=== PATIENT | female | born 1960 | race Caucasian/White ===

== ENCOUNTER 2016-10-23 08:00 | Outpatient (CLI) | payer MEDICAID | END 2016-10-23 08:01 | disposition home or self-care (01) | DX: R30.0 Dysuria (principal); R53.83 Other fatigue ==

== ENCOUNTER 2016-10-24 11:03 | Outpatient (CLI) | payer MEDICAID | END 2016-10-24 11:04 | disposition home or self-care (01) | DX: R53.83 Other fatigue (principal); R30.0 Dysuria ==

== ENCOUNTER 2016-11-07 13:15 | Outpatient (CLI) | payer MEDICAID | END 2016-11-07 13:16 | disposition home or self-care (01) | DX: R31.9 Hematuria, unspecified (principal) ==

== ENCOUNTER 2016-11-21 11:18 | Outpatient (CLI) | payer MEDICAID ==
[2016-11-21] MEDS ORDERED: IOPAMIDOL-300 100 ML VIAL IVP ONE (11:58)
== END 2016-11-21 11:19 | disposition home or self-care (01) ==
DX: K76.89 Other specified diseases of liver (principal); Q61.01 Congenital single renal cyst
CPT/HCPCS: 74178; Q9967

== ENCOUNTER 2017-06-09 18:10 | Emergency (ER) | payer MEDICAID ==
[2017-06-09 19:00] LABS: BILIRUBIN,URINE NEGATIVE (NEGATIVE)
[2017-06-09 19:02] LABS: UA w/ MICROSCOPIC CHARGE YES
[2017-06-09 19:11] LABS: BASOPHILS % (AUTO) 0.7 %; EOSINOPHILS # (AUTO) 0.1 10^3/uL (0.0-0.7); EOSINOPHILS % (AUTO) 1.3 %; HCT - HEMATOCRIT 41.4 % (37.0-47.0); HGB - HEMOGLOBIN 13.6 g/dL (12.0-16.0); LYMPHOCYTES # (AUTO) 2.1 10^3/uL (1.5-3.5); LYMPHOCYTES % (AUTO) 48.9 %; MEAN CORPUSCULAR HEMOGLOBIN 27.3 pg (27.0-31.0); MEAN CORPUSCULAR HGB CONC 32.9 g/dL (32.0-36.0); MEAN CORPUSCULAR VOLUME 82.9 fL (81.0-99.0); MEAN PLATELET VOLUME 7.7 fL (7.9-10.8); MONOCYTES # (AUTO) 0.3 10^3/uL (0.0-1.0); MONOCYTES % (AUTO) 7.8 %; NEUTROPHILS # (AUTO) 1.7 10^3/uL (1.5-6.6); NEUTROPHILS % (AUTO) 41.3 %; NUCLEATED RED BLOOD CELLS AUTO 0.1 /100WBC; RED BLOOD COUNT 4.99 10^6/uL (4.20-5.40); RED CELL DISTRIBUTION WIDTH 13.2 % (12.0-15.0); UNCORRECTED WHITE BLOOD COUNT 4.2 x10^3/uL; WHITE BLOOD COUNT 4.2 x10^3/uL (4.8-10.8)
[2017-06-09 19:18] LABS: UR CULTURE IF IND NOT INDICATED; WBC,URINE 0-3 /HPF (0-5)
[2017-06-09 19:23] LABS: ALBUMIN/GLOBULIN RATIO 1.8 (1.0-2.2); BILIRUBIN,TOTAL 0.6 mg/dL (0.2-1.0); CALCIUM 9.3 mg/dL (8.5-10.3); CREATININE 0.5 mg/dL (0.4-1.0); POTASSIUM 3.4 mmol/L (3.5-5.0); TOTAL PROTEIN 6.9 g/dL (6.7-8.2)
[2017-06-09] MEDS ORDERED: ACETAMINOPHEN 325 MG TABLET PO STA (19:23)
--- NOTE | 2017-06-09 19:24 | ED Physician Documentation ---
History of Present Illness - Stated complaint Stated Complaint: CASE, LOW BACK PX - Chief complaint Chief Complaint: General - History obtained from History obtained from: Patient, Family - History of Present Illness Timing: How many days ago (10) Pain level max: 7 Pain level now: 4 Improved by: nothing Worsened by: nothing - Additonal information Additional information: Patient is a 56-year-old female who presents to the emergency department with chest pain 10 days ago. Since that time she has been checking her blood pressure noted to be higher over the past few days. Has a history of a cardiac stent in the past. She is currently not on any medications. She also states that she has had intermittent headache for the past week. Has not taken anything for this. No fevers. No vomiting. No shortness of breath. Review of Systems Constitutional: denies: Fever, Chills Eyes: denies: Decreased vision, Photophobia Ears: denies: Ear pain Nose: denies: Rhinorrhea / runny nose, Congestion Throat: denies: Sore throat Cardiac: reports: Chest pain / pressure (10 days ago, none since). denies: Palpitations Respiratory: denies: Dyspnea, Cough, Hemoptysis, Wheezing GI: denies: Abdominal Pain, Nausea, Vomiting, Diarrhea : denies: Dysuria, Frequency, Hesitancy Skin: denies: Rash Musculoskeletal: denies: Neck pain, Back pain Neurologic: reports: Headache (gradual onset, intermittent, 4/10). denies: Focal weakness, Numbness PD PAST MEDICAL HISTORY - Past Medical History Past Medical History: Yes Cardiovascular: [place] - Past Surgical History Cardiovascular: Coronary stent - Present Medications Home Medications: Ambulatory Orders Medication Instructions Recorded Confirmed No Known Home Medications [No 06/09/17 06/09/17 Known Home Medications] - Allergies Allergies/Adverse Reactions: Allergies Allergy/AdvReac Type Severity Reaction Status Date / Time codeine Allergy Unknown Verified 06/09/17 18:32 - Social History Does the pt smoke?: No Smoking Status: Never smoker PD ED PE NORMAL - Vitals Vital signs reviewed: Yes - General General: Alert and oriented X 3, No acute distress, Well developed/nourished - HEENT HEENT: Atraumatic, PERRL, EOMI, Moist mucous membranes, Pharynx benign - Neck Neck: Supple, no meningeal sign, No bony TTP, No JVD, No bruit - Cardiac Cardiac: RRR, No murmur, Strong equal pulses - Respiratory Respiratory: No respiratory distress, Clear bilaterally - Abdomen Abdomen: Normal bowel sounds, Soft, Non tender, Non distended - Back Back: No spinal TTP - Derm Derm: Warm and dry - Extremities Extremities: No edema, No calf tenderness / cord - Neuro Neuro: Alert and oriented X 3, channel partners 2-12 intact, No motor deficit, No sensory deficit, Normal speech - Psych Psych: Normal mood, Normal affect Results - Vitals Vitals: Vital Signs - 24 hr 06/09/17 06/09/17 06/09/17 18:27 19:22 19:53 Temperature 37.1 C Heart Rate 86 77 73 Respiratory 18 14 15 Rate Blood Pressure 163/106 H 155/103 H 146/102 H O2 Saturation 99 100 99 Oxygen O2 Source Room air - EKG (time done) 1852 Rate: Rate (enter#) (74) Rhythm: NSR Intervals: LBBB Compare to prior EKG: Old EKG unavailable - Labs Labs: Laboratory Tests 06/09/17 06/09/17 06/09/17 18:40 19:05 19:05 WBC 4.2 L RBC 4.99 Hgb 13.6 Hct 41.4 MCV 82.9 MCH 27.3 MCHC 32.9 RDW 13.2 Plt Count 216 MPV 7.7 L Neut # 1.7 Lymph # 2.1 Mayes # 0.3 Eos # 0.1 Baso # 0.0 Absolute Nucleated RBC 0.00 Nucleated RBC % 0.1 Sodium 138 Potassium 3.4 L Chloride 102 Carbon Dioxide 27 Anion Gap 9.0 BUN 7 Creatinine 0.5 Estimated GFR (MDRD) 128 Glucose 95 Calcium 9.3 Total Bilirubin 0.6 AST 22 ALT 12 Alkaline Phosphatase 64 Troponin I Total Protein 6.9 Albumin 4.4 Globulin 2.5 Albumin/Globulin Ratio 1.8 Lipase 28 Urine Color LT. YELLOW Urine Clarity CLEAR Urine pH 6.0 Ur Specific [place] 1.010 Urine Protein NEGATIVE Urine Glucose (UA) NEGATIVE Urine Ketones TRACE Urine Occult Blood MODERATE H Urine Nitrite NEGATIVE Urine Bilirubin NEGATIVE Urine Urobilinogen 0.2 (NORMAL) Ur Leukocyte Esterase NEGATIVE Urine RBC 0-5 Urine WBC 0-3 Ur Squamous Epith Cells NONE SEEN Urine Bacteria None Seen Ur Microscopic Review INDICATED Urine Culture Comments NOT INDICATED 06/09/17 19:05 WBC RBC Hgb Hct MCV MCH MCHC RDW Plt Count MPV Neut # Lymph # Mayes # Eos # Baso # Absolute Nucleated RBC Nucleated RBC % Sodium Potassium Chloride Carbon Dioxide Anion Gap BUN Creatinine Estimated GFR (MDRD) Glucose Calcium Total Bilirubin AST ALT Alkaline Phosphatase Troponin I < 0.04 Total Protein Albumin Globulin Albumin/Globulin Ratio Lipase Urine Color Urine Clarity Urine pH Ur Specific [place] Urine Protein Urine Glucose (UA) Urine Ketones Urine Occult Blood Urine Nitrite Urine Bilirubin Urine Urobilinogen Ur Leukocyte Esterase Urine RBC Urine WBC Ur Squamous Epith Cells Urine Bacteria Ur Microscopic Review Urine Culture Comments - Rads (name of study) cxr Radiology: Prelim report reviewed, EMP read contemporaneously, See rad report ( NAD) PD MEDICAL DECISION MAKING - ED course Complexity details: reviewed results, re-evaluated patient, considered differential, d/w patient, d/w family ED course: Patient is a 56-year-old female who presents to the emergency department with a headache intermittently for the past several days as well as continued hypertension. She is well-appearing, nontoxic. Had chest pain 10 days ago, no evidence of acute coronary syndrome at this time. Does have a history of a cardiac stent. Is not on any medications at home. Headache feels much better after Motrin and Tylenol. No evidence of subarachnoid hemorrhage. GCS 15. Normal cranial nerve examination. The headache has been intermittent. Will have her follow-up with her doctor for further evaluation and care. Patient would like to know why she has hypertension, we discussed that there could be numerous causes for this, recommend that she follow-up with her doctor for more complete evaluation of her hypertension. Patient counseled regarding signs and symptoms for which I believe and urgent re-evaluation would be necessary. Patient with good understanding of and agreement to plan and is comfortable going home at this time This document was made in part using voice recognition software. While efforts are made to proofread this document, sound alike and grammatical errors may occur. Departure - Departure Disposition: 01 Home, Self Care Clinical Impression: Hypertension Qualifiers: Hypertension type: unspecified Qualified Code(s): I10 - Essential (primary) hypertension Headache Qualifiers: Headache type: unspecified Headache chronicity pattern: acute headache Intractability: not intractable Qualified Code(s): R51 - Headache Chest pain Qualifiers: Chest pain type: unspecified Qualified Code(s): R07.9 - Chest pain, unspecified Condition: Good Instructions: ED Hypertension Poss Follow-Up: Lacie Mae ARNP [Primary Care Provider] - Within 1 week Comments: You need to follow up with your doctor within 1 week for further testing. Your labs are normal tonight. Discharge Date/Time: 06/09/17 20:25
[2017-06-09] MEDS ORDERED: ACETAMINOPHEN 325 MG TABLET PO ONE (19:31)
--- NOTE | 2017-06-09 19:54 | XRAY Preliminary Report ---
Exam: XR CHEST 1 VIEW IMPRESSION: Normal single view chest. [facility] SITE ID: [id number]
[2017-06-09 19:55] VITALS: BP 146/102
--- NOTE | 2017-06-09 19:56 | XRAY Report ---
EXAM: CHEST RADIOGRAPHY EXAM DATE: 06/09/2017 07:38 PM. CLINICAL HISTORY: Chest pain. Elevated blood pressure. COMPARISON: None. TECHNIQUE: 1 view. FINDINGS: Lungs/Pleura: No focal opacities evident. No pleural effusion. No pneumothorax. Mediastinum: Within exam limitations, the cardiomediastinal contour is normal. Other: No bony abnormalities noted. IMPRESSION: Normal single view chest. [facility] Referring Provider Line: [phone] SITE ID: [id number]
[2017-06-09] MEDS ORDERED: IBUPROFEN 600 MG TABLET PO STA (20:24)
[2017-06-09] MEDS ORDERED: IBUPROFEN 600 MG TABLET PO ONE (20:31)
== END 2017-06-09 20:25 | disposition home or self-care (01) ==
LOC: ED 18:10
DX: I10 Essential (primary) hypertension (principal); R51 Headache; R07.9 Chest pain, unspecified; I44.7 Left bundle-branch block, unspecified; R94.31 Abnormal electrocardiogram [ECG] [EKG]; I25.2 Old myocardial infarction
CPT/HCPCS: 36415; 71010; 80053; 81001; 83690; 84484; 85025; 93005; 99283; 99285; A9270; 81003; 87086

== ENCOUNTER 2018-11-06 08:00 | Outpatient (CLI) | payer MEDICAID, OTHER ==
[2018-11-06 17:22] LABS: BILIRUBIN,URINE NEGATIVE (NEGATIVE); GLUCOSE, URINE (UA) NEGATIVE (NEGATIVE); KETONES,URINE (UA) NEGATIVE (NEGATIVE); LEUKOCYTE ESTERASE, URINE NEGATIVE (NEGATIVE); NITRITE,URINE NEGATIVE (NEGATIVE); OCCULT BLOOD,URINE SMALL (NEGATIVE); PROTEIN,URINE NEGATIVE (NEGATIVE); UROBILINOGEN,URINE 0.2 (NORMAL) E.U./dL (NORMAL)
[2018-11-06 17:26] LABS: CLARITY,URINE CLEAR (CLEAR)
[2018-11-06 17:35] LABS: BACTERIA,URINE None Seen /HPF (None Seen); RBC,URINE 0-5 /HPF (0-5); SQUAMOUS EPITHELIAL CELL,UR NONE SEEN (<= Few)
== END 2018-11-06 23:59 | disposition home or self-care (01) ==
LOC: LAB.R 08:00
PROVIDERS: ATTEND Nurse Practitioner Family
DX: R30.0 Dysuria (principal)
CPT/HCPCS: 81001; 81003; 87086

== ENCOUNTER 2018-11-11 08:00 | Outpatient (CLI) | payer OTHER ==
[2018-11-11 17:53] LABS: BASOPHILS # (AUTO) 0.1 10^3/uL (0.0-0.1); BASOPHILS % (AUTO) 1.1 %; EOSINOPHILS # (AUTO) 0.2 10^3/uL (0.0-0.7); EOSINOPHILS % (AUTO) 3.8 %; HGB - HEMOGLOBIN 12.6 g/dL (12.0-16.0); LYMPHOCYTES # (AUTO) 1.8 10^3/uL (1.5-3.5); LYMPHOCYTES % (AUTO) 39.8 %; MEAN CORPUSCULAR HEMOGLOBIN 27.2 pg (27.0-31.0); MEAN CORPUSCULAR HGB CONC 31.7 g/dL (32.0-36.0); MEAN CORPUSCULAR VOLUME 85.9 fL (81.0-99.0); MEAN PLATELET VOLUME 9.5 fL (7.9-10.8); MONOCYTES # (AUTO) 0.3 10^3/uL (0.0-1.0); MONOCYTES % (AUTO) 7.4 %; NEUTROPHILS # (AUTO) 2.1 10^3/uL (1.5-6.6); NEUTROPHILS % (AUTO) 47.9 %; PLT - PLATELET COUNT 243 10^3/uL (130-450); RED BLOOD COUNT 4.63 10^6/uL (4.20-5.40); RED CELL DISTRIBUTION WIDTH 14.1 % (12.0-15.0); WHITE BLOOD COUNT 4.5 x10^3/uL (4.8-10.8)
[2018-11-11 18:52] LABS: ALBUMIN 3.8 g/dL (3.2-5.5); ALBUMIN/GLOBULIN RATIO 1.5 (1.0-2.2); ALKALINE PHOSPHATASE 62 IU/L (42-121); ALT ALANINE AMINOTRANSFERASE 13 IU/L (10-60); AST ASPARTATE AMINOTRANSFERASE 19 IU/L (10-42); BILIRUBIN,TOTAL 0.7 mg/dL (0.2-1.0); BUN - BLOOD UREA NITROGEN 10 mg/dL (6-20); CALCIUM 8.6 mg/dL (8.5-10.3); CARBON DIOXIDE - CO2 29 mmol/L (21-32); CHLORIDE 103 mmol/L (101-111); CHOL/HDL RATIO 2.8 (<4.4); CHOLESTEROL 175 mg/dL; CREATININE 0.5 mg/dL (0.4-1.0); GFR - MDRD 127 (>89); GLUCOSE 87 mg/dL (70-100); HDL CHOLESTEROL 62 mg/dL; LDL CHOLESTEROL,CALCULATED 104 mg/dL; LDL/HDL RATIO 1.7 (<4.4); SODIUM 139 mmol/L (135-145); TOTAL PROTEIN 6.4 g/dL (6.7-8.2); VLDL CHOLESTEROL 9 mg/dL
== END 2018-11-11 23:59 | disposition home or self-care (01) ==
LOC: LAB.S 08:00
PROVIDERS: ATTEND Nurse Practitioner Family
DX: Z13.220 Encounter for screening for lipoid disorders (principal); R30.0 Dysuria; I25.10 Atherosclerotic heart disease of native coronary artery without angina pectoris
CPT/HCPCS: 36415; 80053; 80061; 81001; 83721; 84443; 85025; 87086

== ENCOUNTER 2018-11-13 08:00 | Outpatient (CLI) | payer OTHER | END 2018-11-13 23:59 | disposition home or self-care (01) | LOC: LAB.R 08:00 | PROVIDERS: ATTEND Nurse Practitioner Family | DX: R30.0 Dysuria (principal) | CPT/HCPCS: 87086 ==

== ENCOUNTER 2019-06-05 18:28 | Emergency (ER) | payer OTHER ==
[2019-06-05 18:54] VITALS: BP 137/84
[2019-06-05] MEDS ORDERED: CHERRY SYRUP 10 ML UDC PO ONE (19:20)
[2019-06-05] MEDS ORDERED: IBUPROFEN 100 MG/5 ML UDC PO STA (19:20)
[2019-06-05] MEDS ORDERED: DEXAMETHASONE 10 MG/ML VIAL PO STA (19:20)
[2019-06-05] MEDS ORDERED: PENICILLIN G BENZATHINE 600,000 UNIT/ML SYRINGE IM STA (19:21)
--- NOTE | 2019-06-05 19:32 | ED Physician Documentation ---
History of Present Illness - Stated complaint Stated Complaint: CANT SWALLOW, EAR PAIN - Chief complaint Chief Complaint: Heent - History obtained from History obtained from: Patient - History of Present Illness Timing: How many days ago (2) Pain level max: 8 Pain level now: 7 - Additonal information Additional information: 58-year-old female presents to the emergency department stating that she is having a sore throat and bilateral ear pain. This is worse with swallowing. Better with rest. Has not taken anything for pain. Has a mild cough as well. Subjective fevers. States feels similar to strep pharyngitis in the past. No vomiting. Occasional nausea. No abdominal pain. Review of Systems Constitutional: reports: Fever Throat: reports: Sore throat GI: denies: Vomiting, Diarrhea Skin: denies: Rash Musculoskeletal: denies: Neck pain, Back pain Neurologic: denies: Headache PD PAST MEDICAL HISTORY - Past Medical History Cardiovascular: [place] - Past Surgical History Cardiovascular: Coronary stent - Present Medications Home Medications: Ambulatory Orders Medication Instructions Recorded Confirmed No Known Home Medications 06/09/17 06/09/17 - Allergies Allergies/Adverse Reactions: Allergies Allergy/AdvReac Type Severity Reaction Status Date / Time codeine Allergy Unknown Verified 06/09/17 18:32 mri contrast Allergy Unknown Uncoded 06/05/19 18:43 - Social History Does the pt smoke?: No Smoking Status: Never smoker PD ED PE NORMAL - Vitals Vital signs reviewed: Yes - General General: Alert and oriented X 3, No acute distress, Well developed/nourished - HEENT HEENT: PERRL, Ears normal, Moist mucous membranes, Other (Posterior oropharyngeal erythema with tonsillar exudates. Uvula midline. Normal phona tion. No trismus.) - Neck Neck: Supple, no meningeal sign - Cardiac Cardiac: RRR, Strong equal pulses - Respiratory Respiratory: No respiratory distress, Clear bilaterally - Abdomen Abdomen: Soft, Non tender, Non distended - Derm Derm: Warm and dry - Neuro Neuro: Alert and oriented X 3 - Psych Psych: Normal mood, Normal affect Results - Vitals Vitals: Vital Signs - 24 hr 06/05/19 18:35 Temperature 37.9 C H Heart Rate 90 Respiratory 18 Rate Blood Pressure 137/84 H O2 Saturation 99 Oxygen O2 Source Room air - Labs Labs: Microbiology 06/05/19 18:49 Group A Strep Throat Culture - Preliminary Throat CULTURE IN PROGRESS. RESULTS TO FOLLOW. Laboratory Tests 06/05/19 18:49 Group A Strep Rapid Negative PD MEDICAL DECISION MAKING - ED course Complexity details: reviewed results, re-evaluated patient, considered differential, d/w patient ED course: 58-year-old female with what clinically appears to be strep pharyngitis. She is having difficulty swallowing. She was given dexamethasone and intramuscular penicillin. She is well-appearing, nontoxic. No evidence of peritonsillar abscess. Patient counseled regarding signs and symptoms for which I believe and urgent re-evaluation would be necessary. Patient with good understanding of and agreement to plan and is comfortable going home at this time This document was made in part using voice recognition software. While efforts are made to proofread this document, sound alike and grammatical errors may occur. Departure - Departure Disposition: 01 Home, Self Care Clinical Impression: Strep pharyngitis Condition: Good Instructions: ED Strep Pharyngitis Poss Follow-Up: Your,doctor in 1 week [Other] Comments: Drink plenty of fluids and rest. The injection of penicillin tonight will cover you for the entire course of your illness. The dexamethasone will help with the swelling. You can use Tylenol or Motrin for pain. Return if you worsen. Discharge Date/Time: 06/05/19 19:58
== END 2019-06-05 19:58 | disposition home or self-care (01) ==
LOC: ED 18:28
DX: J02.0 Streptococcal pharyngitis (principal)
CPT/HCPCS: 87070; 87430; 96372; 99283; 99284; A9270

== ENCOUNTER 2023-07-23 00:12 | Emergency (ER) | payer MEDICAID ==
[2023-07-23] MEDS ORDERED: SODIUM CHLORIDE 0.9% 1,000 ML IV STA (00:52)
--- NOTE | 2023-07-23 01:03 | ED Physician Documentation ---
History of Present Illness - Stated complaint Stated Complaint: SOB/DIZZY/HEAD PX - Chief complaint Chief Complaint: Neuro - History obtained from History obtained from: Patient - Additonal information Additional information: Patient is a 62-year-old female presenting for evaluation of a feeling of anxiousness that has been present for the past 3 to 4 days. She reports it feels like there is a sensation on her chest but does not want to describe it as heaviness. She reports she feels some shortness of air particularly when she is laying down. She does have a history of a cardiac stent in 2012. She does not take any medications currently. She did see a television mechanic last week for routine follow-up and again was recommended to take a statin but she does not like to take medications so is not on anything. She denies feeling chest pain. She reports having a pressure sensation behind the left eye. She has been using Excedrin with minimal improvement. Does not take a blood thinner. No head injury or trauma. She denies leg swelling. No abdominal symptoms. 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 She does tell me that she does not understand why she feels this way as she does not think she has anything to feel anxious about. 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 Review of Systems Constitutional: denies: Fever Cardiac: denies: Chest pain / pressure Respiratory: reports: Dyspnea. denies: Cough GI: denies: Abdominal Pain, Vomiting : denies: Dysuria Neurologic: reports: Headache PD PAST MEDICAL HISTORY - Past Medical History Past Medical History: Yes Cardiovascular: [place] - Past Surgical History Past Surgical History: Yes Cardiovascular: Coronary stent - Present Medications Home Medications: Ambulatory Orders Medication Instructions Recorded Confirmed No Known Home Medications 06/09/17 07/23/23 - Allergies Allergies/Adverse Reactions: Allergies Allergy/AdvReac Type Severity Reaction Status Date / Time codeine Allergy Unknown Verified 07/23/23 00:27 Iodinated Contrast Media Allergy Unknown Verified 07/23/23 00:27 - Social History Does the pt smoke?: No Smoking Status: Never smoker Does the pt drink ETOH?: No Does the pt have substance abuse?: No - Immunizations Immunizations are current?: No - POLST Patient has POLST: No PD ED PE NORMAL - General General: Alert and oriented X 3, No acute distress, Well developed/nourished - HEENT HEENT: Atraumatic, PERRL, EOMI, Moist mucous membranes - Neck Neck: Supple, no meningeal sign - Cardiac Cardiac: RRR, Strong equal pulses - Respiratory Respiratory: No respiratory distress, Clear bilaterally - Abdomen Abdomen: Normal bowel sounds, Soft, Non tender, Non distended - Derm Derm: Warm and dry - Extremities Extremities: No edema, No calf tenderness / cord - Neuro Neuro: Alert and oriented X 3, station mechanic helper 2-12 intact, No motor deficit, No sensory deficit, Normal speech Results - Vitals Vitals: Vital Signs - 24 hr 07/23/23 07/23/23 07/23/23 00:22 01:39 02:10 Temperature 36.8 C Heart Rate 76 67 67 Respiratory 18 18 Rate Blood Pressure 145/96 H 160/98 H 146/89 H O2 Saturation 97 100 Oxygen O2 Source Room air - EKG (time done) 1236 EKG releavant findings:: EKG personally interpreted by author of this note. Relevant findings are: Rate 65, normal sinus rhythm, left bundle branch block, no significant change from prior EKG in 2017 - Labs Labs: Laboratory Tests 07/23/23 07/23/23 07/23/23 00:59 00:59 00:59 WBC 5.0 RBC 4.50 Hgb 12.6 Hct 40.7 MCV 90.4 MCH 28.0 MCHC 31.0 L RDW 12.8 Plt Count 231 MPV 10.2 Neut # (Auto) 1.7 Lymph # (Auto) 2.8 [place] # (Auto) 0.4 Eos # (Auto) 0.1 Baso # (Auto) 0.0 Absolute Nucleated RBC 0.00 Nucleated RBC % 0.0 D-Dimer < 200.0 L Sodium 140 Potassium 3.6 Chloride 107 Carbon Dioxide 26 Anion Gap 7.0 BUN 11 Creatinine 0.5 L Estimated GFR (MDRD) 125 Glucose 84 Calcium 9.5 Total Bilirubin 0.4 AST 17 ALT 13 Alkaline Phosphatase 59 Troponin I High Sens 8.5 B-Natriuretic Peptide Total Protein 6.2 L Albumin 4.5 Globulin 1.7 L Albumin/Globulin Ratio 2.6 H Lipase 76 07/23/23 00:59 WBC RBC Hgb Hct MCV MCH MCHC RDW Plt Count MPV Neut # (Auto) Lymph # (Auto) [place] # (Auto) Eos # (Auto) Baso # (Auto) Absolute Nucleated RBC Nucleated RBC % D-Dimer Sodium Potassium Chloride Carbon Dioxide Anion Gap BUN Creatinine Estimated GFR (MDRD) Glucose Calcium Total Bilirubin AST ALT Alkaline Phosphatase Troponin I High Sens B-Natriuretic Peptide 110 H Total Protein Albumin Globulin Albumin/Globulin Ratio Lipase PD Medical Decision Making - ED course Complexity details: reviewed results, re-evaluated patient, d/w patient ED course: Patient is a 62-year-old female presenting for evaluation of an anxious feeling that she has been having for the past 3 to 4 days that seems to be worse at night and when she is laying back and better during the day when she is at work or otherwise distracted. She also reports having a left-sided pressure headache. She has had migraines in the past. Normal neuro exam. Not on blood thinners. Headache does not appear to be thunderclap in intensity at origin. Exam and history do not suggest subarachnoid hemorrhage or intracranial bleed. Denies chest pain but just reports feeling this anxious can a sensation in her chest. She has been noncompliant with medications including recent recommendations from a television mechanic to start a statin. EKG was obtained which is nonischemic. Patient has a history of a left bundle branch block which is again demonstrated today. CBC, chemistry, D-dimer, troponin and BNP were obtained and reviewed and without significant findings. No signs of congestive heart failure on exam. Chest x-ray is clear. Patient reports feeling better here with IV fluids. At this time no emergent condition is identified and patient counseled on need for close follow-up as well as concerning symptoms to return for. 0212 - Patient reports feeling better here. Reviewed labs and x-ray results. Patient counseled on need for close follow-up. Departure - Departure Disposition: 01 Home, Self Care Clinical Impression: SOB (shortness of breath), Headache Condition: Stable Instructions: ED Dyspnea Shortness of Breath, ED Cephalgia Unspecified Follow-Up: Mi Aldana ARNP [Primary Care Provider] - Comments: Your testing tonight is reassuring and I do not see signs of a heart attack, blood clot in your lung or other issues with your lab work. It is also reassuring that you are feeling better here. I would recommend close follow-up with your primary care doctor. Please return to the ER with any worsening symptoms. Forms: PCP List Discharge Date/Time: 07/23/23 02:28
[2023-07-23 01:16] LABS: BASOPHILS % (AUTO) 0.6 %; EOSINOPHILS # (AUTO) 0.1 10^3/uL (0.0-0.7); HCT - HEMATOCRIT 40.7 % (37.0-47.0); HGB - HEMOGLOBIN 12.6 g/dL (12.0-16.0); LYMPHOCYTES # (AUTO) 2.8 10^3/uL (1.5-3.5); LYMPHOCYTES % (AUTO) 56.3 %; MEAN CORPUSCULAR VOLUME 90.4 fL (81.0-99.0); MEAN PLATELET VOLUME 10.2 fL (7.9-10.8); MONOCYTES # (AUTO) 0.4 10^3/uL (0.0-1.0); MONOCYTES % (AUTO) 7.9 %; NEUTROPHILS # (AUTO) 1.7 10^3/uL (1.5-6.6); PLT - PLATELET COUNT 231 10^3/uL (130-450); RED CELL DISTRIBUTION WIDTH 12.8 % (12.0-15.0)
--- NOTE | 2023-07-23 01:17 | XRAY Report ---
PROCEDURE: Chest 1 View X-Ray INDICATIONS: SOA TECHNIQUE: One view of the chest was acquired. COMPARISON: Chest radiograph 06/09/2017. FINDINGS: Surgical changes and devices: None. Lungs and pleura: No pleural effusions or pneumothorax. Lungs are clear. Mediastinum: Mediastinal contours appear normal. Heart size is normal. Bones and chest wall: No suspicious bony lesions. Overlying soft tissues appear unremarkable. IMPRESSION: No acute cardiopulmonary process. Reviewed by: Oleg Tapia MD on 07/23/2023 1:16 AM [facility] [place] Approved by: Oleg Tapia MD on 07/23/2023 1:16 AM [facility] [place] Station ID: [id number]
[2023-07-23 01:33] LABS: TROPONIN I HIGH SENSITIVITY 8.5 ng/L (2.3-14.8)
[2023-07-23 02:03] LABS: ALBUMIN 4.5 g/dL (3.2-5.5); ALBUMIN/GLOBULIN RATIO 2.6 (1.0-2.2); BILIRUBIN,TOTAL 0.4 mg/dL (0.2-1.0); CALCIUM 9.5 mg/dL (8.5-10.3); CREATININE 0.5 mg/dL (0.6-1.3); POTASSIUM 3.6 mmol/L (3.5-4.5); TOTAL PROTEIN 6.2 g/dL (6.4-8.9)
[2023-07-23 02:20] VITALS: BP 146/89; O2SAT 100
== END 2023-07-23 02:28 | disposition home or self-care (01) ==
LOC: ED 00:12
DX: R06.02 Shortness of breath (principal); R51.9 Headache, unspecified
CPT/HCPCS: 36415; 80053; 83690; 83880; 84484; 85025; 85379; 93005; 99283; 99284

== ENCOUNTER 2023-07-29 18:42 | Outpatient (CLI) | payer MEDICAID | END 2023-07-29 23:59 | disposition left against medical advice (07) | LOC: EMS 18:42 | DX: S61.211A Laceration without foreign body of left index finger without damage to nail, initial encounter (principal); W26.9XXA Contact with unspecified sharp object(s), initial encounter; Y93.G1 Activity, food preparation and clean up; Y92.000 Kitchen of unspecified non-institutional (private) residence as the place of occurrence of the external cause ==

== ENCOUNTER 2023-07-29 19:49 | Emergency (ER) | payer MEDICAID ==
[2023-07-29 20:15] VITALS: BP 134/77; O2SAT 98
--- NOTE | 2023-07-29 20:49 | ED Physician Documentation ---
PD HPI SKIN - Stated complaint Stated Complaint: LT FINGER LAC - Chief complaint Chief Complaint: Laceration - History obtained from History obtained from: Patient - Additional information Additional information: Patient presents from home by private vehicle forFinger laceration. She was cutting avocados when she sliced the distal tip of her finger. Medics evaluated it and told her to come to the ER. Bandage in place. Review of Systems Constitutional: denies: Fever, Chills GI: denies: Abdominal Pain, Nausea, Vomiting, Constipation, Diarrhea : denies: Dysuria, Frequency, Hesitancy Skin: reports: Laceration (s) Musculoskeletal: denies: Neck pain, Back pain PD PAST MEDICAL HISTORY - Past Medical History Past Medical History: Yes Cardiovascular: [place] - Past Surgical History Past Surgical History: Yes Cardiovascular: Coronary stent - Present Medications Home Medications: Ambulatory Orders Medication Instructions Recorded Confirmed No Known Home Medications 06/09/17 07/29/23 - Allergies Allergies/Adverse Reactions: Allergies Allergy/AdvReac Type Severity Reaction Status Date / Time codeine Allergy Unknown Verified 07/29/23 20:11 Iodinated Contrast Media Allergy Unknown Verified 07/29/23 20:11 - Social History Does the pt smoke?: No Smoking Status: Never smoker Does the pt drink ETOH?: No Does the pt have substance abuse?: No - Immunizations Immunizations are current?: No Immunizations: TDAP >10years/unknown - POLST Patient has POLST: No PD ED PE NORMAL - Vitals Vital signs reviewed: Yes - General General: Alert and oriented X 3, No acute distress - HEENT HEENT: Atraumatic - Cardiac Cardiac: RRR - Respiratory Respiratory: No respiratory distress - Derm Derm: Normal color, Warm and dry, Other (1cm laceration on L index finger pad. Does not cross joint lines) - Extremities Extremities: Normal ROM s pain - Neuro Neuro: Alert and oriented X 3, baffle mounter 2-12 intact, No motor deficit, Normal speech Results - Vitals Vitals: Vital Signs - 24 hr 07/29/23 20:00 Temperature 36.2 C L Heart Rate 78 Respiratory 16 Rate Blood Pressure 134/77 H O2 Saturation 98 Oxygen O2 Source Room air Procedures - Laceration (location) Finger left Ventral Length in cm: 1 Wound type: Linear Neurovascular status: Sensory intact, Motor intact, Vascular intact Tendon involvement: Tendon intact Anesthesia: Lidocaine 1% Wound preparation: Irrigated copiously NS Skin layer closure: Nylon, Running, Size #-0 - enter number (5), Sutures - enter # (1) Other: Patient tolerated well, No complications, Neurovascular intact, Dressing applied PD Medical Decision Making - ED course Complexity details: reviewed results, re-evaluated patient, considered differential, d/w patient ED course: Accidental finger laceration. Repaired with running suture. Wound care discussed at bedside. Patient called at home, left voicemail on patient's phone to inform her that tetanus not given in ED and I recommended an update. Departure - Departure Disposition: 01 Home, Self Care Clinical Impression: Laceration Condition: Stable Instructions: ED Laceration Hand Comments: Suture removal in 5-7 days. Keep bandage on when working. Forms: PCP List Discharge Date/Time: 07/29/23 21:05
[2023-07-29] MEDS ORDERED: BACITRACIN ZINC OINT 1 PACKET TOP STA (20:57)
== END 2023-07-29 21:05 | disposition home or self-care (01) ==
LOC: ED 19:49
DX: S61.219A Laceration without foreign body of unspecified finger without damage to nail, initial encounter (principal); W26.0XXA Contact with knife, initial encounter; Y92.009 Unspecified place in unspecified non-institutional (private) residence as the place of occurrence of the external cause
CPT/HCPCS: 12001; 99282